=== PATIENT | female | born 1955 | race Caucasian/White ===

== ENCOUNTER 2018-09-30 06:07 | Observation (INO) ==
[2018-09-30] MEDS ORDERED: CeFAZolin Syr 2,000MG/20 ML 2,000 MG/20 ML SYRINGE IVPB ONE (06:23)
[2018-09-30] MEDS ORDERED: Ringers Solution, Lactated 1,000 ML IVC SCH (06:30)
--- NOTE | 2018-09-30 07:12 | Urology History & Physical ---
Date of Encounter: 09/30/18 Time of Encounter: 07:11 Assessment and Plan (1) Uterine prolapse Current Visit: Yes Status: Acute Plan to proceed with supracervical hysterectomy and sacral colpopexy. All questions addressed. History of Present Illness Chief complaint: Prolapse HPI: Ms. Steinberg is a 63 year old female patient with uterine prolapse. Here for supracervical hysterectomy and sacral colpopexy. Past Med Surg Social Fam HX - Past Medical History Medical history: hyperlipidemia, hypertension, other Additional medical history: uterine prolapse, uterovaginal prolapse Psychiatric history: no psych history - Past Surgical History Surgical History: appendectomy, other Additional surgical history: colonoscopy - Social History Smoking Status: Never smoker Smokeless Tobacco Status: No Alcohol use: none Drug use: none Medications and Allergies Ciprofloxacin [Cipro] 500 mg PO BID #14 tablet 04/30/16 [Rx] Lisinopril [Zestril] 20 mg PO DAILY 04/30/16 [History] Phenazopyridine HCl [Pyridium] 200 mg PO TIDAC #3 tab 04/30/16 [Rx] Simvastatin [Zocor] 20 mg PO DAILY 04/30/16 [History] Allergy/AdvReac Type Severity Reaction Status Date / Time No Known Allergies Allergy Verified 09/15/18 13:52 Review of Systems - Constitutional no fever(s) Exam Initial Vital Signs Temp Pulse Resp BP Pulse Ox 98.6 F 58 18 130/69 98 09/30/18 06:39 09/30/18 06:39 09/30/18 06:39 09/30/18 06:39 09/30/18 06:39 - General physical appearance Present: well developed, no distress Urology Results - Labs All other labs normal.
[2018-09-30] MEDS ORDERED: *HR* FentaNYL (PF) 100 MCG/2 ML VIAL ONE (07:13)
[2018-09-30] MEDS ORDERED: *HR* Midazolam HCl 2 MG/2 ML VIAL ONE (07:13)
[2018-09-30] MEDS ORDERED: Lidocaine -MPF 2% 2 ML VIAL ONE (07:13)
[2018-09-30] MEDS ORDERED: Lidocaine -MPF 4% 5 ML AMPUL ONE (07:13)
[2018-09-30] MEDS ORDERED: *HR* Rocuronium Bromide 50 MG/5 ML VIAL ONE (07:13)
[2018-09-30] MEDS ORDERED: *HR* Propofol 200 MG/20 ML VIAL IVP ONE (07:14)
[2018-09-30] MEDS ORDERED: *HR* Methadone 10 MG TABLET PO ONE (07:28)
[2018-09-30] MEDS ORDERED: Celecoxib 100 MG CAPSULE PO ONE (07:28)
[2018-09-30] MEDS ORDERED: Acetaminophen IV 1,000 MG/100 ML INFUS..BTL IVPB ONE (07:29)
[2018-09-30] MEDS ORDERED: Gabapentin 300 MG CAPSULE PO ONE (07:29)
[2018-09-30] MEDS ORDERED: Ketorolac 30 MG/ML VIAL IVP ONE (07:31)
[2018-09-30] MEDS ORDERED: *HR* OxyCODONE Immed Rel 5 MG TABLET PO PRN (07:31)
[2018-09-30] MEDS ORDERED: Ipratropium Neb 0.5 MG NEBULIZER IH ONE (07:31)
[2018-09-30] MEDS ORDERED: *HR* Labetalol 20 MG/4 ML SYRINGE IVP PRN (07:31)
[2018-09-30] MEDS ORDERED: *HR* HYDROmorphone (PF) 1 MG/ML SYRINGE IVP PRN (07:31)
[2018-09-30] MEDS ORDERED: *HR* Meperidine 25 MG/ML SYRINGE IVP PRN (07:31)
[2018-09-30] MEDS ORDERED: Albuterol 2.5 MG/3 ML NEBULIZER IH ONE (07:31)
[2018-09-30] MEDS ORDERED: Ondansetron 4 MG/2 ML VIAL IVP ONE (07:31)
[2018-09-30] MEDS ORDERED: *HR* Promethazine 25 MG/ML VIAL IVP PRN (07:31)
--- NOTE | 2018-09-30 07:33 | Anesthesia Evaluation PreOp ---
Date of Encounter: 09/30/18 Time of Encounter: 07:33 - Past History Planned Operation: CYSTO, SACROCOLPOPEXY, SUPRACERVICAL HYST, BSO Cardiac History: HTN, Hyperlipidemia Pulmonary History: Denies Any Significant HX CLIENT LEADER History: Denies Any Significant HX Other Medical History: Other (OBESITY, BMI 36) Anesthesia History: No Prior Anesthetic Complications, Past Anesthesia Alcohol Use: none Drug use: none Medications and Allergies Ciprofloxacin [Cipro] 500 mg PO BID #14 tablet 04/30/16 [Rx] Lisinopril [Zestril] 20 mg PO DAILY 04/30/16 [History] Phenazopyridine HCl [Pyridium] 200 mg PO TIDAC #3 tab 04/30/16 [Rx] Simvastatin [Zocor] 20 mg PO DAILY 04/30/16 [History] Allergy/AdvReac Type Severity Reaction Status Date / Time No Known Allergies Allergy Verified 09/15/18 13:52 - Meds/Allergy Pre-op Review Medications Reviewed: Yes Allergies Reviewed: Yes Beta Blockers on Current Med List: No Anesthesia Results - Labs Laboratory Last Values WBC 6.0 K/mcL (4.3-11.1) 09/15/18 14:11 RBC 5.26 M/mcL (3.82-4.97) H 09/15/18 14:11 Hgb 14.9 g/dL (11.5-15.4) 09/15/18 14:11 Hct 45.9 % (35.3-44.9) H 09/15/18 14:11 MCV 87.3 fL (83.0-100.0) 09/15/18 14:11 MCH 28.3 pg (28.0-33.3) 09/15/18 14:11 MCHC 32.5 g/dL (31.6-35.5) 09/15/18 14:11 RDW 13.1 % (11.5-14.5) 09/15/18 14:11 Plt Count 173 K/mcL (140-400) 09/15/18 14:11 MPV 10.0 fL (9.4-12.4) 09/15/18 14:11 Immature Gran % 0.2 % (0-4) 09/15/18 14:11 Seg Neutrophils % 60.7 % 09/15/18 14:11 Lymphocytes % 30.9 % 09/15/18 14:11 Monocytes % 7.6 % 09/15/18 14:11 Eosinophils % 0.3 % 09/15/18 14:11 Basophils % 0.3 % 09/15/18 14:11 Neutrophils # 3.7 K/mcL (1.6-8.9) 09/15/18 14:11 Lymphocytes # 1.9 K/mcL (0.6-4.6) 09/15/18 14:11 Monocytes # 0.5 K/mcL (0.0-1.3) 09/15/18 14:11 Eosinophils # 0.0 K/mcL (0.0-0.6) 09/15/18 14:11 Basophils # 0.0 K/mcL (0.0-0.2) 09/15/18 14:11 Potassium 4.4 mEq/L (3.5-5.1) 09/15/18 14:11 Creatinine 0.78 mg/dL (0.60-1.20) 09/15/18 14:11 Est GFR ( Amer) > 60 (> 60) 09/15/18 14:11 Est GFR (Non-Af Amer) > 60 (> 60) 09/15/18 14:11 Blood Type O POSITIVE 09/15/18 14:11 Antibody Screen NEGATIVE 09/15/18 14:11 Anesthesia Exam O2 Sat Height 1.6 m Height 1.6 m Weight 92.533 kg Weight 92.533 kg O2 Sat by Pulse Oximetry 98 Vital Signs Temp Pulse Resp BP Pulse Ox 98.6 F 58 18 130/69 98 09/30/18 06:39 09/30/18 06:39 09/30/18 06:39 09/30/18 06:39 09/30/18 06:39 - HEENT Mallampati: II Teeth: Normal Oral Opening: Greater than 3 - Cardiac Rhythm: Regular - Pulmonary Breath Sounds: bilateral Clear Respiratory Effort: Symmetrical Anesthesia Assess/Plan ASA Score: 2 Anesthetic Plan: General Monitoring Plan: Standard Monitors Recovery Plan: PACU
[2018-09-30] MEDS ORDERED: Dexamethasone 4 MG/ML VIAL ONE (07:36)
[2018-09-30] MEDS ORDERED: Ondansetron 4 MG/2 ML VIAL ONE (07:36)
[2018-09-30] MEDS ORDERED: *HR* Succinylcholine 200 MG/10 ML VIAL IVP ONE (07:45)
[2018-09-30] MEDS ORDERED: *HR* HYDROMORPHONE 2 MG/ML VIAL ONE (07:55)
[2018-09-30] MEDS ORDERED: LIDOCAINE 1% PF 2 ML AMPUL ONE (08:59)
[2018-09-30] MEDS ORDERED: Naloxone 0.4 MG/ML INJ IVP PRN (09:03)
[2018-09-30] MEDS ORDERED: 0.9 % Sodium Chloride 1,000 ML IVC SCH (09:15)
--- NOTE | 2018-09-30 09:42 | Event Note ---
Date of Encounter: 09/30/18 Time of Encounter: 09:38 pt surgery tentatively canceled bc of scheduling issue. pt admitted bc preoperative methadone given. keep NPO bc if opening allows may be able to do case this afternoon.
[2018-09-30 09:47] VITALS: BP 142/86
--- NOTE | 2018-09-30 16:39 | Discharge Summary ---
Date of Encounter: 09/30/18 Time of Encounter: 16:38 - Discharge Diagnosis (1) Uterine prolapse Priority: Primary Status: Acute Comments: case to be rescheduled. - Hospital Course Hospital course: Ms. Steinberg is a 63 year old female patient surgery canceled because of scheduling conflict. She was given preoperative anesthetic medications and they recommended observation. Throughout the day she has had no complications, no altered mental status, vital signs stable. She states she feels fine. I evaluated her myself and she was ambulating around the room without difficulty. I feel she is safe for discharge. - Time Spent with Patient Total time spent providing and/or coordinating discharge services: - Discharge Medications Home Medications: Simvastatin [Zocor] 20 mg PO DAILY 04/30/16 [History] Aspirin [Lo-Dose Aspirin EC] 81 mg PO DAILY 09/30/18 [History] Lisinopril 30 mg PO DAILY 09/30/18 [History] Allergies/Adverse Reactions: Allergy/AdvReac Type Severity Reaction Status Date / Time No Known Allergies Allergy Verified 09/15/18 13:52 Date of admission: 09/30/18 09:28 Primary care physician: Feliciano Caal Discharging clinician: Oswaldo Steinberg Anticipated date of discharge: 09/30/18 Exam Initial Vital Signs Temp Pulse Resp BP Pulse Ox 98.6 F 58 18 130/69 98 09/30/18 06:39 09/30/18 06:39 09/30/18 06:39 09/30/18 06:39 09/30/18 06:39 - General physical appearance Present: well developed, no distress - Neurologic Present: normal coordination. Absent: disoriented, confused - Patient Status Disposition: Home, Self-Care Condition: Good Functional capacity at discharge: independent ambulation Overall status at discharge: patient is progressing back to baseline - Discharge Instructions Follow Up With: Feliciano Caal MD [Primary Care Provider] - Oswaldo Steinberg MD [Partnered Physician] - (office will call to reschedule surgery) - Diet and Activity Activity: increase activity as tolerated Diet: advance to your usual diet
== END 2018-09-30 17:05 | disposition home or self-care (01) ==
LOC: SAMDAY 06:07 → 1NENUOBS 06:07
PROVIDERS: ADMIT Student in an Organized Health Care Education/Training Program; ATTEND Student in an Organized Health Care Education/Training Program